=== PATIENT | female | born 1985 | race Hispanic/Latino ===

== ENCOUNTER 2022-12-16 16:08 | Emergency (ER) | payer BC, MEDICAID, OTHER ==
[~2022-12-16] VITALS: Ht 165.1 cm; Wt 98.0 kg
[2022-12-16 17:09] LABS: BASOPHILS % (AUTO) 0.4 % (0.0-5.0); EOSINOPHILS % (AUTO) 0.4 % (0.0-8.0); HEMATOCRIT 33.5 % (36-48); LYMPHOCYTES % (AUTO) 10.2 % (21.0-51.0); MEAN CORPUSCULAR HEMOGLOBIN 21.6 pg (27.0-33.0); MEAN CORPUSCULAR HGB CONC 30.4 g/dL (32.0-36.0); MEAN CORPUSCULAR VOLUME 70.8 fL (79-99); NEUTROPHILS % (AUTO) 81.7 % (40.0-77.0); PLATELET COUNT (AUTO) 349 K/uL (130-400); RED BLOOD CELL COUNT(AUTO) 4.73 MIL/uL (4.00-5.50); WHITE BLOOD COUNT (AUTO) 12.4 K/uL (4.8-10.8)
[2022-12-16 17:20] LABS: CREATININE 0.6 mg/dL (0.5-1.5); POTASSIUM 3.8 mmol/L (3.5-5.1)
[2022-12-16 17:25] LABS: ALBUMIN 3.3 g/dL (3.5-5.0); TOTAL PROTEIN, SERUM 7.9 g/dL (6.0-8.3)
[2022-12-16] MEDS ORDERED: 0.9%NACL 1000ML 1,000 ML IV ONE (18:00)
[2022-12-16] MEDS ORDERED: DICYCLOMINE HCL 20 MG TAB PO SCH (18:00)
[2022-12-16 20:01] VITALS: BP 137/76
[2022-12-16] MEDS ORDERED: ONDA4TAB10 PO (20:03)
[2022-12-16] MEDS ORDERED: DICY20TA3 PO (20:03)
[2022-12-16] MEDS ORDERED: AZIT500T4 PO (20:03)
== END 2022-12-16 20:20 | disposition home or self-care (01) ==
LOC: EDH 16:08
DX: K52.9 Noninfective gastroenteritis and colitis, unspecified (principal); Z20.822 Contact with and (suspected) exposure to COVID-19
CPT/HCPCS: 99283; 96360; 87635; 80053; 83690; 85025; 87804 ×2; 36415; C9803; J7030